=== PATIENT | female | born 1980 | race African-American/Black ===

== ENCOUNTER 2016-12-13 05:20 | Day surgery (SDC) | payer MEDICAID ==
[2016-12-11 12:00] LABS: BASOPHILS 0 % (0-2); EOSINOPHILS 0.2 % (0-7); HEMATOCRIT 43.5 % (36.0-48.0); HEMOGLOBIN 14.3 g/dL (12-16); IMMATURE GRANULOCYTES 0.2 % (0-5); LYMPHOCYTES 32.4 % (15-50); MCH 31.4 pg (26.0-34.0); MCHC 32.9 g/dL (31.0-37.0); MCV 95.6 fL (80.0-100.0); MEAN PLATELET VOLUME 8.8 fL (7.4-10.4); MONOCYTES 7.2 % (2-11); PLATELET COUNT 251 10x3/uL (130-400); RBC 4.55 10x6/uL (4.00-5.40); RDW 12.2 % (11.5-14.5); WBC 5.8 10x3/uL (4.8-10.8)
[~2016-12-13] VITALS: Ht 165.1 cm; Wt 99.8 kg
[2016-12-13 07:38] VITALS: BP 107/68; Ht 165.1 cm; Wt 99.8 kg
[2016-12-13 07:52] LABS: HCG URINE NEGATIVE (NEGATIVE)
--- NOTE | 2016-12-13 12:41 | NUR ---
1230-PT. ESCORTED VIA WHEELCHAIR TO PERSONAL CAR, LEFT WITH PARENTS DRIVING.
== END 2016-12-13 12:30 | disposition home or self-care (01) ==
LOC: D.OPS 05:20 → D.PAN 09:30 → D.OPS 10:45
PROVIDERS: Obstetrics & Gynecology
DX: Z30.2 Encounter for sterilization (principal); N85.2 Hypertrophy of uterus; D25.2 Subserosal leiomyoma of uterus; Z01.812 Encounter for preprocedural laboratory examination